=== PATIENT | male | born 1950 | race African-American/Black ===

== ENCOUNTER 2018-10-10 15:53 | Emergency (ER) | payer MEDICARE ==
[~2018-10-10] VITALS: Ht 180.3 cm; Wt 118.0 kg
[2018-10-10 16:19] VITALS: BP 146/78
== END 2018-10-10 17:13 | disposition home or self-care (01) ==
LOC: ER 15:53
DX: J98.8 Other specified respiratory disorders (principal); B97.89 Other viral agents as the cause of diseases classified elsewhere; Z87.891 Personal history of nicotine dependence; Z98.890 Other specified postprocedural states
CPT/HCPCS: 99281

== ENCOUNTER 2019-11-16 12:17 | Emergency (ER) | payer MEDICARE ==
[~2019-11-16] VITALS: Ht 180.3 cm; Wt 118.0 kg
[2019-11-16 15:00] VITALS: BP 158/92
== END 2019-11-16 15:32 | disposition home or self-care (01) ==
LOC: ER 12:17
DX: J30.9 Allergic rhinitis, unspecified (principal)
CPT/HCPCS: 99283

== ENCOUNTER 2019-11-20 00:53 | Emergency (ER) | payer MEDICARE ==
[~2019-11-20] VITALS: Ht 180.3 cm; Wt 118.0 kg
[2019-11-20] MEDS ORDERED: IBUPROFEN 600MG TABLET PO STA (01:57)
[2019-11-20 03:26] VITALS: BP 150/85
== END 2019-11-20 03:27 | disposition home or self-care (01) ==
LOC: ER 00:53
DX: J06.9 Acute upper respiratory infection, unspecified (principal); Z98.890 Other specified postprocedural states
CPT/HCPCS: 87070; 87430; 99283

== ENCOUNTER 2019-11-28 16:45 | Emergency (ER) | payer MEDICARE, MEDICAID ==
[~2019-11-28] VITALS: Ht 180.3 cm; Wt 118.0 kg
[2019-11-28] MEDS ORDERED: KETOROLAC 30MG/ML VIAL IV STA (23:09)
[2019-11-28] MEDS ORDERED: SODIUM CHLORIDE 0.9% 1,000 ML IV ONE (23:09)
[2019-11-28] MEDS ORDERED: ONDANSETRON HCL 4MG/2ML INJ IV STA (23:09)
[2019-11-28 23:39] LABS: BASOPHILS % 0.6 % (0.0-2.0); EOSINOPHILS % 2.3 % (0.0-5.0); HEMOGLOBIN. 14.5 g/dL (14.0-18.0); LYMPHOCYTES % 31.1 % (20.0-50.0); MEAN CORPUSCULAR HEMOGLOBIN 31.8 pg (28.0-32.0); MEAN CORPUSCULAR VOLUME 92.2 fL (80.0-94.0); MEAN PLATELET VOLUME 8.3 fl (7.4-10.4); MONOCYTES % 7.7 % (2.0-8.0); NEUTROPHILS % 58.3 % (40.0-76.0); PLATELET 197 x1000/uL (130-400); RED BLOOD CELL COUNT 4.55 mill/uL (4.7-6.1); RED CELL DISTRIBUTION WIDTH 13.6 % (11.6-14.6)
[2019-11-28 23:44] LABS: CHLORIDE 108 mEq/L (98-107)
[2019-11-28 23:49] LABS: INR 0.9; PROTHROMBIN TIME 10.3 sec (9.6-11.0)
[2019-11-29 02:45] VITALS: BP 144/75
== END 2019-11-29 02:48 | disposition home or self-care (01) ==
LOC: ER 16:45
DX: K80.50 Calculus of bile duct without cholangitis or cholecystitis without obstruction (principal); R10.9 Unspecified abdominal pain; E78.00 Pure hypercholesterolemia, unspecified
CPT/HCPCS: 36415; 71045; 74176; 76705; 80053; 83690; 83880; 84484; 85025; 85610; 96374; 96375; 99285; J1885; J2405; J7030

== ENCOUNTER 2022-08-28 15:37 | Emergency (ER) | payer BC, MEDICAID ==
[~2022-08-28] VITALS: Ht 180.3 cm; Wt 118.0 kg
[2022-08-28 16:14] VITALS: BP 150/81
== END 2022-08-28 22:39 | disposition home or self-care (01) ==
LOC: ER 15:37
DX: R11.0 Nausea (principal); I10 Essential (primary) hypertension; E78.00 Pure hypercholesterolemia, unspecified; E11.9 Type 2 diabetes mellitus without complications; Z98.890 Other specified postprocedural states
CPT/HCPCS: 99284